=== PATIENT | female | born 1975 | race Caucasian/White ===

== ENCOUNTER → 2017-05-23 | Outpatient (CLI) | payer BC ==
--- NOTE | 2017-05-24 08:54 | Diagnostic Imaging Report ---
TECHNIQUE: Magnetic resonance imaging of the RIGHT KNEE was performed WITHOUT injected contrast. HISTORY: Injury, tear of medial meniscus COMPARISON: None available. FINDINGS: LIGAMENTS AND TENDONS: ACL: Intact PCL: Intact Collateral ligaments: Intact Iliotibial band: Unremarkable Popliteal tendon: Intact Extensor mechanism: Intact, minimal thickening and intrasubstance degeneration of the proximal patellar ligament/tendon. JOINT: Menisci: Medial: Intact Lateral: Mild intrasubstance degeneration of the anterior horn. Articular Cartilage: Medial Compartment: Intermediate grade erosion and fibrillation of the anterior to mid weightbearing cartilage of the femoral condyle. Lateral Compartment: No focal defect. Patellofemoral Compartment: Low-grade erosion and full-thickness fissuring of the patellar cartilage, most notably about the apex. Joint Fluid: The amount of fluid within the joint is within physiologic limits. A small, minimally distended Birmingham's cyst. BONES: No focal or infiltrative bone marrow replacing abnormality. No acute fracture. SOFT TISSUES: Mild edema within the adipose tissue interposed between the proximal patellar tendon and lateral femoral condyle. IMPRESSION: 1. Findings which can be seen in the setting of patellar tendon lateral femoral condyle friction syndrome. 2. Minimal proximal patellar tendinosis. 3. Mild medial and patellofemoral compartment osteoarthrosis. 4. Mild intrasubstance degeneration of the anterior horn of the lateral meniscus, but no discrete displaced meniscal tear. Signed by: Dr. Bryan Alberts D.O., M.M.M. on 05/24/2017 8:50 AM
--- NOTE | 2017-05-24 09:48 | Diagnostic Imaging Report ---
TECHNIQUE: Magnetic resonance imaging of the LEFT KNEE was performed WITHOUT injected contrast. HISTORY: Injury, tear of medial meniscus, swelling COMPARISON: None available. FINDINGS: LIGAMENTS AND TENDONS: ACL: Intact PCL: Intact Collateral ligaments: Intact Iliotibial band: Unremarkable Popliteal tendon: Intact Extensor mechanism: Intact, minimal intrasubstance degeneration adjacent to the inferior pole of the patella. JOINT: Menisci: Medial: Minimal fraying of the free margin of the posterior horn. Lateral: Probable mild anatomic variation versus fraying at the origin of the ligament of Carr, but no discrete displaced meniscal tear. Articular Cartilage: Medial Compartment: Intermediate to high grade erosion and full-thickness fissuring of the weightbearing cartilage. Lateral Compartment: No focal defect. Patellofemoral Compartment: Low-grade erosion of the patellar cartilage. Joint Fluid: The amount of fluid within the joint is within physiologic limits. A multilobulated Birmingham's cyst, in greatest dimensions measuring 3.7 cm (AP) x 2.3 cm (ML) x 7.8 cm (CC). BONES: No focal or infiltrative bone marrow replacing abnormality. No acute fracture. SOFT TISSUES: Subtle edema versus trace fluid within the soft tissues deep to the distal patellar tendon. IMPRESSION: 1. Mild medial and patellofemoral compartment osteoarthrosis. 2. Minimal proximal patellar tendinosis. 3. Minimal deep infrapatellar bursitis. 4. A small to moderate-sized Birmingham's cyst. Signed by: Dr. Bryan Alberts D.O., M.M.M. on 05/24/2017 9:45 AM
== END ==
LOC: MRI 16:01
PROVIDERS: ATTEND Specialist
DX: S83.222A Peripheral tear of medial meniscus, current injury, left knee, initial encounter (principal); S83.221A Peripheral tear of medial meniscus, current injury, right knee, initial encounter